=== PATIENT | female | born 1960 | race Caucasian/White ===

== ENCOUNTER 2016-11-04 21:44 | Emergency (ER) | payer MEDICARE, BC ==
[2016-11-04] MEDS ORDERED: fentaNYL 100 MCG/2 ML SDV IVPUSH ONE (23:03)
[2016-11-04] MEDS ORDERED: Prochlorperazine 10 MG/2 ML SDV IVPUSH ONE (23:03)
[2016-11-04] MEDS ORDERED: Sodium Chloride 0.9% 10 ML Syringe FLUSH PRN (23:03)
[2016-11-04] MEDS ORDERED: LORazepam 2 MG/ML MDV IVPUSH ONE (23:03)
--- NOTE | 2016-11-04 23:10 | EDM.PDOC ---
[id number]: VOMITING Time Seen by Provider: 11/04/16 22:55 Source of Information: Reports: Patient, Old records, RN notes reviewed History Limitations: Reports: No limitations - History of Present Illness INITIAL COMMENTS - FREE TEXT/NARRATIVE: Brought in by her parents Chief complaint Abdominal pain vomiting HPI 56-year-old female who underwent Liz-en-Y gastric bypass in 2011. Has had recurrent nausea and vomiting ever since, and last year she underwent upper endoscopy because of this, there was a narrow stricture but no signs of inflammation. She doesn't ever recall being quite so sick as this episode however. She started developing a backache 2 days ago which he thought may be due to kidney stones again. Tonight 6 PM she started vomiting. Multiple episodes of vomiting to the point that she says there is "nothing left inside". Severe lower abdominal midline cramps and burning. Low back pain in the midline. No fever or chills Urine appears a bit darker today she noted but no change in urinary frequency. She does have ongoing frequency because of atonic bladder since . Normal bowel movement today. He believes that she might be having kidney stones again. She has had her gallbladder and her uterus removed abd Pain Score (Numeric/FACES): 10 - Related Data Allergies Allergy/AdvReac Type Severity Reaction Status Date / Time ceftriaxone sodium Allergy Severe anaphylaxis Verified 11/04/16 22:43 [From Rocephin] dicloxacillin [Dicloxacillin] Allergy Severe anaphylaxis Verified 11/04/16 22:43 indomethacin [From Indocin] Allergy Severe anaphylaxis Verified 11/04/16 22:43 Penicillins Allergy Severe anaphylaxis Verified 11/04/16 22:43 latex Allergy Intermediate Rash Verified 11/04/16 22:43 pregabalin [From Lyrica] Allergy Intermediate Swelling Verified 11/04/16 22:43 amoxicillin trihydrate Allergy Mild Rash Verified 11/04/16 22:43 [From Augmentin] potassium clavulanate Allergy Mild Rash Verified 11/04/16 22:43 [From Augmentin] duloxetine HCl Allergy Swelling Verified 11/04/16 22:43 [From Cymbalta] NSAIDS (Non-Steroidal Allergy Rash Verified 11/04/16 22:43 Anti-Inflamma acetaminophen [From Percocet] AdvReac Intermediate Nausea and Verified 11/04/16 22:43 Vomiting furosemide [From Lasix] AdvReac Intermediate nausea and Verified 11/04/16 22:43 dizziness gabapentin [From Neurontin] AdvReac Intermediate Dizziness Verified 11/04/16 22: 43 ibuprofen AdvReac Intermediate gi Verified 11/04/16 22:43 intolerance oxycodone HCl [From Percocet] AdvReac Intermediate Nausea and Verified 11/04/16 22:43 Vomiting Sulfa (Sulfonamide AdvReac Intermediate gi Verified 11/04/16 22:43 Antibiotics) intolerance aspirin AdvReac Nausea and Verified 11/04/16 22:43 [From Darvon Compound-65] Vomiting caffeine AdvReac Nausea and Verified 11/04/16 22:43 [From Darvon Compound-65] Vomiting propoxyphene HCl AdvReac Nausea and Verified 11/04/16 22:43 [From Darvon Compound-65] Vomiting bee stings Allergy Severe anaphylaxis Uncoded 11/04/16 22:43 Home Meds: Home Meds Albuterol Sulfate [Albuterol Sulfate HFA] 2 puff INH Q4HR PRN 05/27/13 [History] EPINEPHrine [Epipen 2-Oscar] 0.3 mg SQ ASDIRECTED 05/27/13 [History] Ipratropium [Atrovent 0.06% Nasal Pinch] 2 sprays INH TID PRN 05/27/13 [History] Triamcinolone Acetonide [Kenalog 0.1% Crm] 1 film TOP BID PRN 05/27/13 [History] Hyoscyamine [Hyomax-SL] 0.125 mg SL Q4H PRN 05/31/13 [History] Acetaminophen with Codeine [Acetaminophen-Cod #3] 1 tab PO Q6H 10/11/15 [History ] Cholecalciferol (Vitamin D3) [Vitamin D3] 50,000 unit PO Q7D 10/11/15 [History] Diclofenac Sodium [Voltaren 1% Gel] 4 g TOP QID 10/11/15 [History] Dicyclomine [Bentyl] 20 mg PO QID PRN 10/11/15 [History] Fluticasone Propionate [Flonase Allergy Relief] 2 sprays NASBOTH DAILY PRN 10/10 [History] Tamsulosin [Flomax] 1 tab PO DAILY PRN 10/11/15 [History] Cyanocobalamin (Vitamin B-12) [Vitamin B-12] 1,000 mcg PO ASDIRECTED 11/04/16 [ History] Ondansetron [Zofran ODT] 4 mg SL Q6H PRN 11/04/16 [History] Thiamine [Vitamin B-1] 200 mg IM Q28D 11/04/16 [History] Zoledronic Acid in Water [Reclast] 5 mg IV ASDIRECTED 11/04/16 [History] Past Medical History - Past Health History Medical/Surgical History: Denies Medical/Surgical History HEENT History: Reports: Impaired vision Cardiovascular History: Reports: None Respiratory History: Reports: Asthma, Bronchitis, recurrent, Pneumonia, recurrent, Sleep apnea, SOB Gastrointestinal History: Reports: Chronic constipation, Chronic diarrhea, Colon polyp, Diverticulosis, GERD, Hiatal hernia, Irritable bowel syndrome Genitourinary History: Reports: Pyelonephritis, Renal calculus, UTI, recurrent, Other (see below) Other Genitourinary History: atonic bladder 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: Dysfunctional uterine bleeding, Musculoskeletal History: Reports: Arthritis, Back pain, chronic, Fibromyalgia, Neck pain, chronic Neurological History: Reports: Neuropathy, diabetic Psychiatric History: Reports: Anxiety, Depression Endocrine/Metabolic History: Reports: Diabetes, type II, Other (see below) Other Endocrine/Metabolic History: hypoglycemic Hematologic History: Reports: Anemia, B12 deficiency, Blood transfusion(s) Immunologic History: Reports: Other (see below) Other Immunologic History: shogrens disease Oncologic (Cancer) History: Reports: None Dermatologic History: Reports: Eczema, Psoriasis, Other (see below) Other Dermatologic History: atopic dermatitis - Infectious Disease History Infectious Disease History: Reports: Chicken pox, Shingles - Past Surgical History HEENT Surgical History: Reports: Naso-sinus surgery, Other (see below) Other HEENT Surgeries/Procedures: salivary gland removed Cardiovascular Surgical History: Reports: None Respiratory Surgical History: Reports: None GI Surgical History: Reports: Bariatric procedure, Cholecystectomy, Colonoscopy , EGD, Esophageal dilatation, Fabiana fundoplication Female Surgical History: Reports: Hysterectomy Endocrine Surgical History: Reports: None Neurological Surgical History: Reports: None Musculoskeletal Surgical History: Reports: Arthroscopic knee, Arthroscopic procedure, Shoulder surgery, Other (see below) Other Musculoskeletal Surgeries/Procedures:: carpal tunnel release x2 bilat, right ulnar release, left thumb surgery Dermatological Surgical History: Reports: None Social & Family History - Tobacco Use Smoking Status *Q: Never Smoker Second Hand Smoke Exposure: No - Alcohol Use Days Per Week of Alcohol Use: 0 - Recreational Drug Use Recreational Drug Use: No - Living Situation & Occupation Living situation: Reports: alone ED ROS GENERAL - Review of Systems Review Of Systems: See Below Constitutional: Reports: fatigue, diaphoresis, decreased appetite. Denies: fever HEENT: Reports: No symptoms Respiratory: Reports: No Symptoms Cardiovascular: Reports: No symptoms Endocrine: Reports: fatigue GI/Abdominal: Reports: Abdominal pain, Decreased appetite, Nausea, Vomiting. Denies: Constipation, Diarrhea : Reports: frequency (Chronic). Denies: dysuria, flank pain, hematuria Musculoskeletal: Reports: back pain (Midline low back) Skin: Reports: no symptoms Neurological: Reports: No Symptoms Psychiatric: Reports: No symptoms Hematologic/Lymphatic: Reports: no symptoms Immunologic: Reports: no symptoms ED EXAM, GENERAL - Physical Exam Exam: See Below Exam Limited By: No limitations General Appearance: alert, moderate distress, other (First the curled up on her side, occasional winces with pain or retching, elevated systolic blood pressure otherwise vital signs normal) Eye Exam: bilateral eye: normal inspection Ears: normal external exam, hearing grossly normal Nose: normal inspection, normal mucosa Throat/Mouth: Normal voice (Dry mucous membranes), Other Head: atraumatic Neck: supple, non-tender. No: lymphadenopathy (R), lymphadenopathy (L) Respiratory/Chest: no respiratory distress, lungs clear, no accessory muscle use Cardiovascular: normal peripheral pulses, regular rate, rhythm GI/Abdominal: normal bowel sounds, soft, no organomegaly, no distention, tender (Especially suprapubic and in the lower abdomen). No: distended, guarding, abnormal bowel sounds: Back Exam: normal inspection Extremities: normal inspection Neurological: alert, oriented, no motor/sensory deficits Psychiatric: anxious Skin Exam: Warm, Dry, Intact, Normal color, No rash Lymphatic: no adenopathy Course - Vital Signs Last Recorded V/S: Last Vital Signs Temp 35.9 C 11/05/16 00:51 Pulse 77 11/05/16 00:51 Resp 16 11/05/16 00:51 BP 101/53 L 11/05/16 00:51 Pulse Ox 95 11/05/16 00:51 - Orders/Labs/Meds Orders: Active Orders 24 hr Category Date Time Status Peripheral IV Care [RC] . DIRECTED Care 11/04/16 23:03 Active Abdomen Pelvis wo Cont [CT] Stat Exams 11/05/16 00:07 Taken Peripheral IV Insertion Adult [OM.PC] Routine Oth 11/04/16 23:02 Ordered Labs: Laboratory Tests 11/04/16 11/04/16 11/04/16 Range/Units 23:02 23:14 23:14 WBC 8.5 (4.5-11.0) K/uL RBC 4.64 (3.30-5.50) M/uL Hgb 13.5 (12.0-15.0) g/dL Hct 40.6 (36.0-48.0) % MCV 88 (80-98) fL MCH 29 (27-31) pg MCHC 33 (32-36) % Plt Count 238 (150-400) K/uL Sodium 139 L (140-148) mmol/L Potassium 4.0 (3.6-5.2) mmol/L Chloride 104 (100-108) mmol/L Carbon Dioxide 26 (21-32) mmol/L Anion Gap 13.0 (5.0-14.0) mmol/L BUN 17 (7-18) mg/dL Creatinine 0.8 (0.6-1.0) mg/dL Est Cr Clr Drug Dosing 63.41 mL/min Estimated GFR (MDRD) > 60 (>60) Glucose 185 H (74-106) mg/dL Lactic Acid 1.0 (0.4-2.0) mmol/L Calcium 8.2 L (8.5-10.1) mg/dL Total Bilirubin 0.3 (0.2-1.0) mg/dL AST 27 (15-37) U/L ALT 29 (12-78) U/L Alkaline Phosphatase 82 (46-116) U/L Total Protein 7.3 (6.4-8.2) g/dL Albumin 3.6 (3.4-5.0) g/dL Globulin 3.7 H (2.3-3.5) g/dL Albumin/Globulin Ratio 1.0 L (1.2-2.2) Lipase 295 (73-393) U/L Urine Color Urine Appearance Urine pH (4.5-8.0) Ur Specific [place] (1.008-1.030) Urine Protein (NEGATIVE) mg/dL Urine Glucose (UA) (NEGATIVE) mg/dL Urine Ketones (NEGATIVE) mg/dL Urine Occult Blood (NEGATIVE) Urine Nitrite (NEGATIVE) Urine Bilirubin (NEGATIVE) Urine Urobilinogen (NORMAL) mg/dL Ur Leukocyte Esterase (NEGATIVE) Urine RBC (0-5) Urine WBC (0-5) Ur Epithelial Cells Amorphous Sediment Urine Bacteria Urine Mucus 11/05/16 Range/Units 00:22 WBC (4.5-11.0) K/uL RBC (3.30-5.50) M/uL Hgb (12.0-15.0) g/dL Hct (36.0-48.0) % MCV (80-98) fL MCH (27-31) pg MCHC (32-36) % Plt Count (150-400) K/uL Sodium (140-148) mmol/L Potassium (3.6-5.2) mmol/L Chloride (100-108) mmol/L Carbon Dioxide (21-32) mmol/L Anion Gap (5.0-14.0) mmol/L BUN (7-18) mg/dL Creatinine (0.6-1.0) mg/dL Est Cr Clr Drug Dosing mL/min Estimated GFR (MDRD) (>60) Glucose (74-106) mg/dL Lactic Acid (0.4-2.0) mmol/L Calcium (8.5-10.1) mg/dL Total Bilirubin (0.2-1.0) mg/dL AST (15-37) U/L ALT (12-78) U/L Alkaline Phosphatase (46-116) U/L Total Protein (6.4-8.2) g/dL Albumin (3.4-5.0) g/dL Globulin (2.3-3.5) g/dL Albumin/Globulin Ratio (1.2-2.2) Lipase (73-393) U/L Urine Color Yellow Urine Appearance Clear Urine pH 5.0 (4.5-8.0) Ur Specific [place] 1.020 (1.008-1.030) Urine Protein Negative (NEGATIVE) mg/dL Urine Glucose (UA) Normal (NEGATIVE) mg/dL Urine Ketones 15 H (NEGATIVE) mg/dL Urine Occult Blood Negative (NEGATIVE) Urine Nitrite Negative (NEGATIVE) Urine Bilirubin Negative (NEGATIVE) Urine Urobilinogen 1 (NORMAL) mg/dL Ur Leukocyte Esterase Negative (NEGATIVE) Urine RBC 0-5 (0-5) Urine WBC 0-5 (0-5) Ur Epithelial Cells Few Amorphous Sediment Not seen Urine Bacteria Few Urine Mucus Not seen Meds: Medications Discontinued Medications Generic Name Dose Route Start Last Admin Trade Name Freq PRN Reason Stop Dose Admin Fentanyl 100 mcg 11/04/16 23:03 11/04/16 23:32 Sublimaze IVPUSH 11/04/16 23:04 100 mcg ONETIME ONE Administration Sodium Chloride 1,000 mls @ 500 mls/hr 11/04/16 23:15 11/04/16 23:26 Normal Saline IV 500 mls/hr ASDIRECTED JIA Administration Lorazepam 1 mg 11/04/16 23:03 11/04/16 23:27 Ativan IVPUSH 11/04/16 23:04 1 mg ONETIME ONE Administration Prochlorperazine Edisylate 5 mg 11/04/16 23:03 11/04/16 23:29 Compazine IVPUSH 11/04/16 23:04 5 mg ONETIME ONE Administration Sodium Chloride 10 ml 11/04/16 23:03 11/04/16 23:34 Saline Flush FLUSH 10 ml ASDIRECTED PRN Administration Keep Vein Open - Re-Assessments/Exams Free Text/Narrative Re-Assessment/Exam: 11/04/16 23:09 48-year-old female with history of gastric bypass presenting with 5 hours nausea vomiting and abdominal cramps. Has had back pain for a few days. Differential diagnoses includes renal colic, dyspepsia, bowel obstruction, colitis, among others. Intravenous saline, fentanyl 100 mcg, Compazine 5 mg, lorazepam 1 mg Labs 11/05/16 00:18 00.05 Improved with the above treatment Lab tests showed normal white count 8.5 hemoglobin 13.5 normal electrolytes except sodium 139 Normal anion gap and lactic acid Glucose 185 Hepatic profile and lipase normal Urinalysis pending Discussed options with patient, elect to proceed with CT scan abdomen pelvis without IV contrast. 11/05/16 01:09 CT scan negative for obstructing ureteral stones although she does have bilateral small stones in the kidneys. Increased colonic fecal retention but no evidence of obstruction abscess hernia or other acute emergent condition. Fluids only until bowels and pain are reduced Continue current medications Return to emergency if severe pain repeated vomiting or other new symptoms. Discharge with mother Departure - Departure Time of Disposition: 01:06 Disposition: Home, Self-Care 01 Condition: good Clinical Impression: Recurrent lower abdominal pain, Nausea and vomiting in adult, Moderate dehydration Instructions: Abdominal Pain, Adult, [id number] Referrals: Michelle Chacon [employer] OPERATOR [Primary Care Provider] - Forms: ED Department Discharge Additional Instructions: Blood test and CT scan tonight did not show any signs of acute infection or process in the abdomen apart from some buildup of stool. There is a slowdown but no obstruction of the bowel. Clear fluids only until your bowels are working regularly again your pain is decreased. Continue antinausea medication as needed followup appointment with Dr. Bishop if your pain is persisting You may need to return to emergency if there is recurrent vomiting and you're unable to take anything in or you have severe pain again. - My Orders Last 24 Hours: My Active Orders 11/04/16 23:02 Peripheral IV Insertion Adult [OM.PC] Routine 11/04/16 23:03 Peripheral IV Care [RC] . DIRECTED 11/05/16 00:07 Abdomen Pelvis wo Cont [CT] Stat - Assessment/Plan Last 24 Hours: My Active Orders 11/04/16 23:02 Peripheral IV Insertion Adult [OM.PC] Routine 11/04/16 23:03 Peripheral IV Care [RC] . DIRECTED 11/05/16 00:07 Abdomen Pelvis wo Cont [CT] Stat
[2016-11-04] MEDS ORDERED: Sodium Chloride 0.9% 1,000 ML IV SCH (23:15)
[2016-11-05 00:52] VITALS: BP 101/53
== END 2016-11-05 01:15 | disposition home or self-care (01) ==
LOC: JP.ED 21:44
DX: R10.30 Lower abdominal pain, unspecified (principal); R11.2 Nausea with vomiting, unspecified; E86.0 Dehydration; J45.909 Unspecified asthma, uncomplicated; F41.9 Anxiety disorder, unspecified; F32.9 Major depressive disorder, single episode, unspecified; E11.9 Type 2 diabetes mellitus without complications; Z98.84 Bariatric surgery status; Z90.49 Acquired absence of other specified parts of digestive tract; Z90.710 Acquired absence of both cervix and uterus; Z98.890 Other specified postprocedural states; Z79.899 Other long term (current) drug therapy; Z88.0 Allergy status to penicillin; Z88.1 Allergy status to other antibiotic agents; Z88.2 Allergy status to sulfonamides; Z88.5 Allergy status to narcotic agent; Z88.8 Allergy status to other drugs, medicaments and biological substances; Z91.040 Latex allergy status; Z91.030 Bee allergy status
CPT/HCPCS: 36415; 74176; 80053; 81001; 83605; 83690; 85027; 96361; 96374; 96375; 99284; J0780; J2060; J3010; J7040; J7050

== ENCOUNTER 2017-08-20 05:52 | Day surgery (SDC) | payer MEDICARE, BC ==
[2017-08-20] MEDS ORDERED: Cyanocobalamin (Vitamin B12) 1,000 MCG/ML SDV IM ONE (06:30)
[2017-08-20] MEDS ORDERED: Lactated Ringers 1,000 ML IV ONE (06:30)
[2017-08-20] MEDS ORDERED: fentaNYL 100 MCG/2 ML SDV ONE (07:09)
[2017-08-20] MEDS ORDERED: Midazolam 1 MG/ML 2 ML SDV ONE (07:09)
[2017-08-20] MEDS ORDERED: Propofol 200 MG/20 ML SDV ONE (07:09)
[2017-08-20] MEDS ORDERED: Ondansetron 4 MG/2 ML SDV ONE (07:09)
[2017-08-20] MEDS ORDERED: Glycopyrrolate 0.2 MG/ML 2 ML SYRINGE IVPUSH ONE (07:15)
[2017-08-20] MEDS ORDERED: MVI, Adult with Vitamin K 10 ML, Thiamine 200 MG, Chromium/Copper/Mang/Selen/Zn 1 ML in... IV ONE ×4 (07:30)
[2017-08-20 08:50] VITALS: BP 111/70
[2017-08-21] MEDS ORDERED: Lidocaine 2% 100 MG/5 ML Syringe IVPUSH ONE (10:30)
[2017-08-21] MEDS ORDERED: Ketamine 500 MG/5 ML MDV IV SCH (10:30)
[2017-08-21] MEDS ORDERED: Lidocaine 0.4%/D5W 2 GM/500 ML BAG IV SCH (10:30)
[2017-08-21] MEDS ORDERED: Ropivacaine 33 ML, Dexamethasone 8 MG, EPINEPHrine 0.4 MG, Sodium Chloride 0.9% 44.6 ML NERVRT SCH ×4 (10:30)
--- NOTE | 2017-08-26 08:40 | OR ---
DATE OF PROCEDURE: 08/20/2017 PREOPERATIVE DIAGNOSIS: Dysphagia and epigastric discomfort, status post Liz-en-Y gastric bypass. POSTOPERATIVE DIAGNOSES: Gastrogastric fistula associated with: 1. Antral gastritis. 2. Pouch gastritis. 3. Mild stricturing of gastrojejunostomy. PROCEDURE: Esophagogastroduodenoscopy with: 1. Biopsies of antrum for CLOtest (48477). 2. Dilation of gastrojejunostomy ([id number]). ANESTHESIA: IV sedation. INDICATIONS FOR PROCEDURE: This is a 57-year-old presenting several years status post Liz- en-Y gastric bypass with some dysphagia, as well as epigastric discomfort. Plan is to proceed with upper GI endoscopy with biopsies and/or dilation as indicated. Potential risks including bleeding and perforation were discussed, and the patient wishes to proceed. DESCRIPTION OF PROCEDURE: The patient was taken to the operating room and placed in a left lateral decubitus position. IV sedation was administered, after which the upper GI endoscope was passed orally through the length of the esophagus and into the gastric pouch. The patient was noted to have some redness in the pouch. There was also noted to be a gastrogastric fistula, which was easily traversed with the gastroscope and taken down into the remainder of the stomach. The patient had some patchy antral gastritis, and the pyloric channel and duodenum to the junction of the third and fourth portions were otherwise unremarkable. At this point, biopsies were obtained from the antrum and sent for CLOtest for H. pylori. Following this, the scope was then brought back up into the pouch. The patient was noted to have some mild stricturing of the gastrojejunostomy as well. A 54- Turkish balloon dilator was then centered across the anastomosis and inflated and held it for 1 minute. Following completion of this, the balloon was deflated. The patient was noted to have some degree of improvement in terms of the caliber of the gastrojejunostomy. The scope was then withdrawn. The procedure concluded. There were no evident complications. Following the procedure, the situation was discussed with the patient and her mother, and plan will be to proceed with a laparoscopic closure of the gastrogastric fistula, i.e. revision of that portion of the gastric bypass, and will be scheduled in the next few days. Yahir Bishop MD /[id number]
== END 2017-08-20 09:25 | disposition home or self-care (01) ==
LOC: JP.SDS 05:52
PROVIDERS: ATTEND Surgery
DX: K29.50 Unspecified chronic gastritis without bleeding (principal); K31.6 Fistula of stomach and duodenum; K91.89 Other postprocedural complications and disorders of digestive system; Z98.84 Bariatric surgery status; K21.9 Gastro-esophageal reflux disease without esophagitis; E11.9 Type 2 diabetes mellitus without complications; J45.909 Unspecified asthma, uncomplicated; G47.30 Sleep apnea, unspecified; Z88.0 Allergy status to penicillin; Z88.1 Allergy status to other antibiotic agents; Z88.2 Allergy status to sulfonamides; Z88.8 Allergy status to other drugs, medicaments and biological substances; Z91.040 Latex allergy status; Z91.030 Bee allergy status
CPT/HCPCS: 43239; 43245; 87081; J2250; J2405; J2704; J3010; J3420; J7120

== ENCOUNTER 2017-08-21 07:50 | Inpatient (IN) | payer MEDICARE, BC ==
[2017-08-21] MEDS ORDERED: Dextrose 5%-Lactated Ringers 1,000 ML IV SCH (08:00)
[2017-08-21] MEDS ORDERED: Acetaminophen 500 MG Tab PO ONE (08:00)
[2017-08-21] MEDS ORDERED: Scopolamine 1.5 MG Transdermal Patch TOP SCH (08:00)
[2017-08-21] MEDS ORDERED: Celecoxib 200 MG Cap PO ONE (08:00)
[2017-08-21] MEDS ORDERED: Levofloxacin 500 MG/20 ML SDV ONE (08:10)
[2017-08-21] MEDS ORDERED: Levofloxacin/Dextrose 5%-Water 500 MG in Premix Bag 1 BAG IV ONE (08:30)
[2017-08-21] MEDS ORDERED: Ketamine 500 MG/5 ML MDV IV SCH (10:30)
[2017-08-21] MEDS ORDERED: Ropivacaine 33 ML, Dexamethasone 8 MG, EPINEPHrine 0.4 MG, Sodium Chloride 0.9% 44.6 ML NERVRT SCH ×4 (10:30)
[2017-08-21] MEDS ORDERED: Lidocaine 2% 100 MG/5 ML Syringe IVPUSH ONE (10:30)
[2017-08-21] MEDS ORDERED: Succinylcholine/Normal Saline 200 MG/10 ML Syringe ONE (11:13)
[2017-08-21] MEDS ORDERED: Neostigmine Methylsulfate 1 MG/ML 5 ML Syringe ONE (11:13)
[2017-08-21] MEDS ORDERED: Rocuronium 50 MG/5 ML Vial ONE (11:13)
[2017-08-21] MEDS ORDERED: fentaNYL 250 MCG/5 ML SDV ONE (11:13)
[2017-08-21] MEDS ORDERED: Propofol 200 MG/20 ML SDV ONE (11:13)
[2017-08-21] MEDS ORDERED: Ondansetron 4 MG/2 ML SDV ONE (11:13)
[2017-08-21] MEDS ORDERED: Dexamethasone 4 MG/ML SDV ONE (11:13)
[2017-08-21] MEDS ORDERED: ePHEDrine 50 MG/ML SDV ONE (11:39)
[2017-08-21] MEDS ORDERED: fentaNYL 100 MCG/2 ML SDV ONE (13:36)
[2017-08-21] MEDS ORDERED: HYDROmorphone/Normal Saline 15 MG/30 ML PCA IV PRN (14:14)
[2017-08-21] MEDS ORDERED: Naloxone 0.4 MG/ML SDV IV PRN (14:14)
[2017-08-21] MEDS: Lidocaine 0.4%/D5W 2 GM/500 ML BAG IV SCH (14:45)
[2017-08-21] MEDS: Dextrose 5%-Lactated Ringers 1,000 ML IV SCH (14:48)
[2017-08-21] MEDS ORDERED: Labetalol 20 MG/4 ML Syringe IVPUSH PRN (15:00)
[2017-08-21] MEDS ORDERED: Ondansetron 4 MG/2 ML SDV IVPUSH PRN (15:00)
[2017-08-21] MEDS ORDERED: diphenhydrAMINE 50 MG/ML SDV IVPUSH PRN (15:00)
[2017-08-21] MEDS ORDERED: Metoclopramide 10 MG/2 ML SDV IVPUSH PRN (15:00)
[2017-08-21] MEDS: hydrOXYzine HCl 100 MG/2 ML SDV IM PRN ×2 (15:16→19:16)
[2017-08-21] MEDS ORDERED: MVI, Adult with Vitamin K 10 ML, Thiamine 200 MG, Chromium/Copper/Mang/Selen/Zn 1 ML in... IV SCH ×4 (16:00)
[2017-08-21] MEDS: Pantoprazole 40 MG Vial IVPUSH SCH (16:09)
[2017-08-21] MEDS: Acetaminophen Soln 650 MG/20.3 ML UD Cup PO SCH ×2 (16:09→21:22)
[2017-08-21] MEDS: Heparin Sodium 5,000 Units/ML Vial SUBCUT SCH (19:16)
[2017-08-22] MEDS ORDERED: Iohexol 647 MG/ML 50 ML SDV PO PRN (02:09)
[2017-08-22] MEDS: hydrOXYzine HCl 100 MG/2 ML SDV IM PRN ×3 (03:23→17:13)
[2017-08-22] MEDS: Acetaminophen Soln 650 MG/20.3 ML UD Cup PO SCH ×4 (04:06→22:53)
[2017-08-22] MEDS: Dextrose 5%-Lactated Ringers 1,000 ML IV SCH (06:12)
[2017-08-22] MEDS: Heparin Sodium 5,000 Units/ML Vial SUBCUT SCH ×2 (08:08→19:56)
[2017-08-22] MEDS: SCOPOLAMINE PATCH CHECK TOP SCH (08:21)
[2017-08-22] MEDS ORDERED: Dextrose 5%-Lactated Ringers 1,000 ML IV SCH (08:30)
[2017-08-22] MEDS: Tamsulosin 0.4 MG Cap.ER PO SCH (09:30)
[2017-08-22] MEDS ORDERED: Levofloxacin/Dextrose 5%-Water 500 MG in Premix Bag 1 BAG IV SCH (11:00)
[2017-08-22] MEDS: Lidocaine 0.4%/D5W 2 GM/500 ML BAG IV SCH (12:40)
[2017-08-22] MEDS: Pantoprazole 40 MG Vial IVPUSH SCH (15:31)
[2017-08-22] MEDS ORDERED: MVI, Adult with Vitamin K 10 ML, Thiamine 200 MG, Chromium/Copper/Mang/Selen/Zn 1 ML in... IV SCH ×4 (16:00)
[2017-08-23] MEDS: hydrOXYzine HCl 100 MG/2 ML SDV IM PRN ×2 (01:13→13:36)
[2017-08-23] MEDS: Acetaminophen Soln 650 MG/20.3 ML UD Cup PO SCH ×4 (04:10→22:49)
[2017-08-23] MEDS: Heparin Sodium 5,000 Units/ML Vial SUBCUT SCH ×2 (07:52→20:13)
[2017-08-23] MEDS: Hyoscyamine 0.125 MG Tab.SL SL PRN ×2 (07:58→18:21)
[2017-08-23] MEDS: Tamsulosin 0.4 MG Cap.ER PO SCH (08:39)
[2017-08-23] MEDS: SCOPOLAMINE PATCH CHECK TOP SCH (08:43)
[2017-08-23] MEDS ORDERED: Cyanocobalamin (Vitamin B12) 1,000 MCG/ML SDV IM ONE (09:00)
[2017-08-24] MEDS: Acetaminophen Soln 650 MG/20.3 ML UD Cup PO SCH ×2 (03:28→09:26)
[2017-08-24] MEDS: Heparin Sodium 5,000 Units/ML Vial SUBCUT SCH (07:38)
[2017-08-24 08:29] VITALS: BP 129/77
[2017-08-24] MEDS: Tamsulosin 0.4 MG Cap.ER PO SCH (09:26)
--- NOTE | 2017-08-24 10:13 | CR ---
Limited upper GI The patient is status post Liz-en-Y gastric bypass. There are left upper quadrant drains in place. T here is no extravasation of contrast. The gastric pouch empties readily into a nondilated Liz limb. No complications are evident. Impression: 1. Status post Liz-en-Y gastric bypass without evidence for complication.
--- NOTE | 2017-08-24 11:47 | PN ---
DATE OF SERVICE: 08/22/2017 The patient has been afebrile with stable vital signs, status post revision of gastric pouch, portion of gastric bypass yesterday along with concurrent gastric resection. Clinically, she is doing well at this point and will advance to a step-2 diet, is not requiring anything beyond the Tylenol for pain. We will restart her Flomax and her step-2 diet today. She may be ready for discharge home tomorrow. Yahir Bishop MD /[id number]
--- NOTE | 2017-08-24 13:11 | PN ---
DATE OF SERVICE: 08/23/2017 The patient has been afebrile with stable vital signs. Complaining of some cramping pain this morning, is known to take some hyoscyamine for that, and we will restart that. Otherwise, oral intake was a little bit marginal. We will keep her 1 more day. Pain control was satisfactory with the gabapentin and Tylenol. Yahir Bishop MD /[id number]
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
--- NOTE | 2017-08-31 12:24 | OR ---
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 POSTOPERATIVE DIAGNOSES: 1. 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 2. Segment of stomach ischemic status post dissection of area around gastrogastric fistula. OPERATIVE PROCEDURES: Diagnostic laparoscopy with lysis of adhesions and;: 1. Revision of gastric pouch portion of Liz-en-Y gastric bypass (56486). 2. Additional partial gastrectomy removing area of the stomach rendered ischemic, status post dissection of area around gastrogastric fistula (50130). ANESTHESIA: General. FAMILY RESOURCE MANAGEMENT PROFESSOR: Grisel Bergman PA-C, and GO Palomo3. INDICATION FOR PROCEDURE: This is a 57-year-old female presenting with some ongoing upper abdominal discomfort status post previous Liz-en-Y gastric bypass. She was noted to have a gastrogastric fistula on upper GI endoscopy as well. Plan is to proceed with a diagnostic laparoscopy, laparotomy if necessary, and revision of the gastric pouch portion of the Liz- en-Y gastric bypass including division of the gastrogastric fistula. Potential risks of the procedure including bleeding, infection, leaks from various GI tract closures were all reviewed along with the remote possibility of cardiopulmonary, septic, or hemorrhagic complications leading to , and the patient wishes to proceed. DETAILS OF PROCEDURE: The patient was taken to the operating room and placed in a supine position. After general endotracheal anesthesia was induced, she was converted to a lithotomy position, and the abdomen prepped and draped. At 15 cm inferior and 5 cm left of xiphoid process, a transverse incision was made. The peritoneal cavity entered under direct vision with an Optiview trocar and inflated to 15 mmHg pressure with CO2. Laparoscope was then reinserted. No underlying trocar insertion site injuries were seen. Following this, 5 additional trocars were placed across the upper and mid abdomen and general exploration was undertaken. The patient was noted to have a normal-appearing Liz limb and intact jejunojejunostomy. As one passed up toward the stomach, there were some adhesions in the area of previous gastrojejunostomy and gastric pouch. These were taken down allowing the liver to be retracted anteriorly. At this point, the lesser sac was entered at a point somewhat below the gastrojejunostomy with a combination of Harmonic scalpel and blunt dissection. This then allowed dissection of the stomach away from the pancreas and splenic vessels. The division of some was initiated with a combination of black and purple loads, continuing from that point up to the area of the uppermost gastric fundus over the midportion of the left diaphragm. This then allowed dissection of the stomach further away from the adhesions posterior to the area of the gastrojejunostomy. At that point, an Saurabh tube with 32-Bengali caliber was placed orally per Anesthesia, and placed across the gastrojejunostomy and into the Liz limb to prevent overtightening of that area. Once the stomach was pulled up flush with the previous gastric pouch staple line, this area was then divided with JOE black loads and that specimen delivered from the field. The patient was noted to have an additional area of some ischemic stomach related to takedown of the area of the gastrogastric fistula, and this was excised as an additional partial gastrectomy using a combination of black and purple loads. Both specimens at that point had been delivered from the field. Fibrin sealant was then placed adjacent to the new gastric staple line, and the omentum tacked up in that area as well with some 3-0 Vicryl stitch. The abdomen was then irrigated with antibiotic-containing saline solution. A Anders-Mcmillan drain was then placed adjacent to the gastric staple line and from there up in the splenic fossa. This was taken down through the left lateral trocar site. The trocars were removed and the peritoneal cavity deflated. Incisions were closed using 4-0 Vicryl skin stitch and drain affixed with the same suture. The patient was taken to the recovery room in a satisfactory condition. There were no evident complications. Physician magistrate assistant, Grisel Bergman, played an essential role in assisting in this case, helping to position the patient, retract structures as needed, as well as suturing and cutting sutures when indicated. Her presence improved patient safety and decreased the operative time. Yahir Bishop MD /[id number]
== END 2017-08-24 10:38 | disposition home or self-care (01) | DRG 392 ==
LOC: JP.SDSSCHI 07:50 → JP.SDS 07:50 → EDSTATUS 08:30 → JP.2SS 13:30
PROVIDERS: ADMIT Surgery; ATTEND Surgery
PROC: 0DB64ZZ Excision of Stomach, Percutaneous Endoscopic Approach (ICD-10-PCS; principal; 2017-08-21)
PROC: 0DB64ZZ Excision of Stomach, Percutaneous Endoscopic Approach (ICD-10-PCS; 2017-08-21)
DX: K31.6 Fistula of stomach and duodenum (principal); K91.2 Postsurgical malabsorption, not elsewhere classified; K91.850 Pouchitis; R13.19 Other dysphagia; E16.1 Other hypoglycemia; Z86.14 Personal history of Methicillin resistant Staphylococcus aureus infection; E53.8 Deficiency of other specified B group vitamins; E55.9 Vitamin D deficiency, unspecified; Z98.84 Bariatric surgery status; Z98.0 Intestinal bypass and anastomosis status; Z68.25 Body mass index [BMI] 25.0-25.9, adult; J45.909 Unspecified asthma, uncomplicated; K58.9 Irritable bowel syndrome, unspecified; E11.42 Type 2 diabetes mellitus with diabetic polyneuropathy; M79.7 Fibromyalgia; E78.5 Hyperlipidemia, unspecified; G47.30 Sleep apnea, unspecified; L20.9 Atopic dermatitis, unspecified; K31.89 Other diseases of stomach and duodenum
CPT/HCPCS: 36415; 74240; 74240-26; 82962; 86850; 86900; 86901; 88304; 88307; 94762; A9270-GY; C9113; J0171; J1100; J1644; J1956; J2001; J2405; J2704; J2795; J3010; J3410; J3411; J3420; J7030; J7042; J7050; Q9967

== ENCOUNTER 2020-11-30 08:33 | Day surgery (SDC) | payer MEDICARE, BC ==
[~2020-11-30 08:33] MED LIST: Lactated Ringers 1,000 ML IV ONE; MVI, Adult with Vitamin K 10 ML, Thiamine 200 MG, Chromium/Copper/Mang/Selen/Zn 1 ML in... IV ONE; Midazolam 1 MG/ML 2 ML SDV ONE; Propofol 200 MG/20 ML SDV ONE; fentaNYL 100 MCG/2 ML SDV ONE
[2020-11-30] MEDS ORDERED: MVI, Adult with Vitamin K 10 ML, Thiamine 200 MG, Chromium/Copper/Mang/Selen/Zn 1 ML in... IV ONE ×8 (09:30→10:45)
[2020-11-30] MEDS ORDERED: Lactated Ringers 1,000 ML IV ONE (09:30)
[2020-11-30] MEDS ORDERED: Cyanocobalamin (Vitamin B12) 1,000 MCG/ML SDV IM ONE (09:30)
[2020-11-30] MEDS ORDERED: Glycopyrrolate 0.2 MG/ML 2 ML SDV IVPUSH ONE (09:45)
[2020-11-30 12:17] VITALS: BP 107/67; PULSE 75
--- NOTE | 2020-12-09 14:32 | OR ---
DATE OF PROCEDURE: 11/30/2020 SURGEON: Yahir Bishop MD PREOPERATIVE DIAGNOSIS: Dysphagia referable to distal esophagus and esophagogastric junction. POSTOPERATIVE DIAGNOSES: Very mild narrowing of distal esophagus and gastrojejunostomy without significant mucosal inflammation. OPERATIVE PROCEDURE: Upper gastrointestinal endoscopy with dilation of distal esophagus and esophagogastric junction (48660). ANESTHESIA: IV sedation. INDICATIONS FOR PROCEDURE: A 60-year-old presenting with some dysphagia referable to the distal esophagus. She is status post Liz-en-Y gastric bypass and is to undergo an upper endoscopy with biopsies and/or dilation as indicated. Potential risks including bleeding and perforation were discussed, and the patient wishes to proceed. DETAILS OF PROCEDURE: The patient was taken to the operating room, placed in a left lateral decubitus position. IV sedation was administered after which the upper GI endoscope was passed orally through the length of the esophagus, into the stomach, into the gastric pouch, and from there through the gastrojejunostomy roughly 20 cm into Liz limb. Overall findings include a very mild narrowing of the distal esophagus and gastrojejunostomy, but otherwise, there was no mucosal inflammation present and no significant findings suggestive of any obstructive process. A Bard gastrointestinal balloon catheter was centered across the gastrojejunostomy and distal esophagus and inflated to 54- Greek size. This was held in position for 1 minute after which it was deflated and withdrawn. A little change occurred indicating that this was primarily a functional problem with regard to her esophageal motility and such. The scope was then withdrawn. The procedure was then concluded. The patient will continue her home medications. She is instructed to try the Levsin, perhaps 15 minutes before meals to see if that helps with regard to her dysphagia. The patient does have an appointment with Grisel Bergman PA-C on . Yahir Bishop MD /[id number]
== END 2020-11-30 12:37 | disposition home or self-care (01) ==
LOC: JP.SDS 08:33
PROVIDERS: ATTEND Surgery
DX: K91.89 Other postprocedural complications and disorders of digestive system (principal); K22.2 Esophageal obstruction; G47.33 Obstructive sleep apnea (adult) (pediatric); E11.9 Type 2 diabetes mellitus without complications; K21.9 Gastro-esophageal reflux disease without esophagitis; Z98.84 Bariatric surgery status
CPT/HCPCS: 43249; J2250; J2704; J3010; J3411; J3420; J3490; J7120

== ENCOUNTER 2021-04-30 21:54 | Emergency (ER) | payer MEDICARE, BC ==
[2021-04-30 22:16] VITALS: BP 147/83; PULSE 79
--- NOTE | 2021-04-30 23:05 | EDM.PDOC ---
ED HPI GENERAL MEDICAL PROBLEM - General Chief Complaint: General Stated Complaint: PRESSURE AND PAIN IN RIB CAGE Time Seen by Provider: 04/30/21 22:48 Source of Information: Reports: Patient History Limitations: Reports: No Limitations - History of Present Illness INITIAL COMMENTS - FREE TEXT/NARRATIVE: The emergency room today secondary to an upper abdominal pain under the rib cage area across the entire abdomen she describes it as a cramping waves of squeezing sharp stabbing intermittently when stabbing pain occurs is a 10 out of 10. Patient states that she did have an episode of nausea and vomiting around 1800 today. Patient also has a history significant for dental surgery that occurred today and she has been using Tylenol for this as well as clindamycin since she has had 3 doses of her clindamycin today. Patient states she also took her irritable bowel medicine but this did not help so she came to the emergency room. She did take zofran at home after episode of N/V, she states this helped PMH/Meds/allergies--reviewed in EMR as patient does not know all; review of medication list is noted for use of hyoscyamine, dicyclomine, and tramadol in past PSH--gastric bypass, esophageal/intestinal adhesionlysis, SHARMAINE, cholecystectomy Denies tob/etoh/drug use history Patient denies having had COVID; she has received her COVID immunization (Mode rna) Onset: Today, Sudden Upper Abdomen Pain Score (Numeric/FACES): 5 - Related Data Allergies Allergy/AdvReac Type Severity Reaction Status Date / Time ceftriaxone sodium Allergy Severe anaphylaxis Verified 04/30/21 22:17 [From Rocephin] dicloxacillin [Dicloxacillin] Allergy Severe anaphylaxis Verified 04/30/21 22:17 indomethacin [From Indocin] Allergy Severe anaphylaxis Verified 04/30/21 22:17 Penicillins Allergy Severe anaphylaxis Verified 04/30/21 22:17 latex Allergy Intermediate Rash Verified 04/30/21 22:17 pregabalin [From Lyrica] Allergy Intermediate Swelling Verified 04/30/21 22:17 amoxicillin trihydrate Allergy Mild Rash Verified 04/30/21 22:17 [From Augmentin] potassium clavulanate Allergy Mild Rash Verified 04/30/21 22:17 [From Augmentin] duloxetine HCl Allergy Swelling Verified 04/30/21 22:17 [From Cymbalta] mirtazapine Allergy Other Verified 04/30/21 22:17 NSAIDS (Non-Steroidal Allergy Rash Verified 04/30/21 22:17 Anti-Inflamma Fklwhev-JVP-LqY Reductase Allergy Other Verified 04/30/21 22:17 Inhibitor [Hjqtmok-Xot-Igr Reductase Inhibitor] acetaminophen [From Percocet] AdvReac Intermediate Nausea and Verified 04/30/21 22:17 Vomiting furosemide [From Lasix] AdvReac Intermediate nausea and Verified 04/30/21 22:17 dizziness gabapentin [From Neurontin] AdvReac Intermediate Dizziness Verified 04/30/21 22:17 ibuprofen AdvReac Intermediate gi Verified 04/30/21 22:17 intolerance oxycodone HCl [From Percocet] AdvReac Intermediate Nausea and Verified 04/30/21 22:17 Vomiting Sulfa (Sulfonamide AdvReac Intermediate gi Verified 04/30/21 22:17 Antibiotics) intolerance aspirin AdvReac Nausea and Verified 04/30/21 22:17 [From Darvon Compound-65] Vomiting caffeine AdvReac Nausea and Verified 04/30/21 22:17 [From Darvon Compound-65] Vomiting propoxyphene HCl AdvReac Nausea and Verified 04/30/21 22:17 [From Darvon Compound-65] Vomiting bee stings Allergy Severe anaphylaxis Uncoded 04/30/21 22:17 Home Meds: Home Meds Albuterol Sulfate [Albuterol Sulfate HFA] 2 puff INH Q4HR PRN 05/27/13 [History] EPINEPHrine [Epipen 2-Oscar] 0.3 mg SQ ASDIRECTED 05/27/13 [History] Ipratropium [Atrovent 0.06% Nasal Rogers] 2 sprays INH TID PRN 05/27/13 [History] Triamcinolone Acetonide [Kenalog 0.1% Crm] 1 film TOP BID PRN 05/27/13 [History] Hyoscyamine [Hyomax-SL] 0.125 mg SL Q4H PRN 05/31/13 [History] Cholecalciferol (Vitamin D3) [Vitamin D3] 50,000 unit PO Q7D 10/11/15 [History] Diclofenac Sodium [Voltaren 1% Gel] 4 g TOP QID 10/11/15 [History] Dicyclomine [Bentyl] 20 mg PO QID PRN 10/11/15 [History] Cyanocobalamin (Vitamin B-12) [Vitamin B-12] 1,000 mcg IM Q14D 11/04/16 [History] Ondansetron [Zofran ODT] 4 mg SL Q6H PRN 11/04/16 [History] Thiamine [Vitamin B-1] 100 mg IM Q28D 11/04/16 [History] Zoledronic Acid in Water [Reclast] 5 mg IV ASDIRECTED 11/04/16 [History] Tamsulosin [Flomax] 0.4 mg PO DAILY PRN 08/18/17 [History] Acetaminophen [Tylenol] 650 mg PO Q6H #1120 ml 08/24/17 [Rx] Folic Acid 1 mg PO DAILY 06/14/18 [History] polyethylene glycoL 3350 [MiraLAX] 17 gm PO DAILY PRN 06/14/18 [History] Ammonium Lactate [Lac-Hydrin 12% Crm] 1 applic TOP BID 11/03/19 [History] Omeprazole 40 mg PO DAILY 11/26/20 [History] traMADol HCl [Tramadol HCl] 50 mg PO Q6H PRN 11/26/20 [History] Clindamycin HCl 1 cap PO QID 04/30/21 [History] Past Medical History - Past Health History Medical/Surgical History: Denies Medical/Surgical History HEENT History: Reports: Impaired Vision, Other (See Below) Other HEENT History: ruptured left ear drum Cardiovascular History: Reports: High Cholesterol Respiratory History: Reports: Asthma, Bronchitis, Recurrent, Pneumonia, Recurrent, Sleep Apnea, SOB Gastrointestinal History: Reports: Chronic Constipation, Chronic Diarrhea, Colon Polyp, Diverticulosis, GERD, Hiatal Hernia, Irritable Bowel Syndrome Genitourinary History: Reports: Pyelonephritis, Renal Calculus, UTI, Recurrent Other Genitourinary History: atonic bladder FREELANCE WRITER History: Reports: Dysfunctional Uterine Bleeding, Musculoskeletal History: Reports: Arthritis, Back Pain, Chronic, Fibromyalgia, Neck Pain, Chronic Neurological History: Reports: Neuropathy, Diabetic Psychiatric History: Reports: Anxiety, Depression, PTSD Endocrine/Metabolic History: Reports: Diabetes, Type II, Other (See Below) Other Endocrine/Metabolic History: hypoglycemic Hematologic History: Reports: Anemia, B12 Deficiency, Blood Transfusion(s), Iron Deficiency Immunologic History: Reports: Other (See Below) Other Immunologic History: shogrens disease Oncologic (Cancer) History: Reports: None Dermatologic History: Reports: Eczema, Psoriasis, Other (See Below) Other Dermatologic History: atopic dermatitis - Infectious Disease History Infectious Disease History: Reports: Chicken Pox, MRSA, Mumps, Shingles Other Infectious Disease History: hx MRSA left hand after thumb surgery 10+ years ago - Past Surgical History Head Surgeries/Procedures: Reports: None HEENT Surgical History: Reports: Naso-Sinus Surgery, Oral Surgery, Other (See Below) Other HEENT Surgeries/Procedures: salivary gland removed Cardiovascular Surgical History: Reports: None Respiratory Surgical History: Reports: None GI Surgical History: Reports: Bariatric Procedure, Cholecystectomy, Colonoscopy, EGD, Esophageal Dilatation, Fabiana Fundoplication Female Surgical History: Reports: Hysterectomy, Salpingo-Oophorectomy Endocrine Surgical History: Reports: None Neurological Surgical History: Reports: None Musculoskeletal Surgical History: Reports: Arthroscopic Knee, Arthroscopic Procedure, Shoulder Surgery, Other (See Below) Other Musculoskeletal Surgeries/Procedures:: carpal tunnel release x2 bilat, right ulnar release, left thumb surgery, left foot bone removed Oncologic Surgical History: Reports: None Dermatological Surgical History: Reports: Skin Biopsy Social & Family History - Family History Family Medical History: No Pertinent Family History - Tobacco Use Tobacco Use Status *Q: Never Tobacco User - Caffeine Use Caffeine Use: Reports: Coffee - Recreational Drug Use Recreational Drug Use: No - Living Situation & Occupation Living situation: Reports: Alone ED ROS GENERAL - Review of Systems Review Of Systems: Comprehensive ROS is negative, except as noted in HPI. Constitutional: Reports: No Symptoms Respiratory: Reports: No Symptoms Cardiovascular: Reports: No Symptoms GI/Abdominal: Reports: Abdominal Pain, Nausea, Vomiting. Denies: Constipation, Diarrhea, Distension ED EXAM, GENERAL - Physical Exam Exam: See Below Exam Limited By: No Limitations General Appearance: Alert, WD/WN, Moderate Distress (secondary to abdominal pain/discomfort) Eye Exam: Bilateral Eye: EOMI, Normal Inspection, PERRL Ears: Normal External Exam, Hearing Grossly Normal Nose: Normal Inspection Throat/Mouth: Normal Inspection, Normal Oropharynx, Normal Voice, No Airway Compromise Head: Atraumatic, Normocephalic Neck: Normal Inspection, Supple, Non-Tender, Full Range of Motion Respiratory/Chest: No Respiratory Distress, Lungs Clear, Normal Breath Sounds, Chest Non-Tender Cardiovascular: Normal Peripheral Pulses, Regular Rate, Rhythm, No Edema, No Murmur GI/Abdominal: Normal Bowel Sounds, Soft, No Distention, Tender (mild palpatory tenderness across upper abdomen--focal mid to left side) (Female) Exam: Deferred Rectal (Female) Exam: Deferred Back Exam: Normal Inspection, Full Range of Motion Extremities: Normal Inspection, Normal Range of Motion, No Pedal Edema, Normal Capillary Refill Neurological: Alert, Oriented, Normal Cognition, Normal Gait, No Motor/Sensory Deficits Psychiatric: Normal Affect, Normal Mood Skin Exam: Warm, Dry, Intact, Normal Color, No Rash Course - Vital Signs Text/Narrative:: d/w patient that likely IBS flare from stress of dental surgery & use of clindamycin; recommend continued use of her home medications for IBS (hyoscyamine, dicyclomine) and will provide rx for limited supply of tramadol. she states she has zofran at home. will also add protonix (she only takes omeprazole prn). ensure you are drinking plenty of fluids to stay hydrated. follow up with PCM if continued concerns. verbalized understanding/agreement with plan of care Last Recorded V/S: Last Vital Signs Temp 97.1 F 04/30/21 22:15 Pulse 79 04/30/21 22:15 Resp 16 04/30/21 22:15 BP 147/83 H 04/30/21 22:15 Pulse Ox 96 04/30/21 22:15 - Orders/Labs/Meds Orders: Active Orders 24 hr Category Date Time Status Pantoprazole [ProTONIX] Med 04/30/21 22:58 Once 40 mg PO ONETIME ONE traMADol [Ultram] Med 04/30/21 22:58 Once 50 mg PO ONETIME ONE Departure - Departure Time of Disposition: 23:10 Disposition: Home, Self-Care 01 Condition: Good Clinical Impression: IBS (irritable bowel syndrome), Abdominal cramping - Discharge Information *PRESCRIPTION DRUG MONITORING PROGRAM REVIEWED*: Yes *COPY OF PRESCRIPTION DRUG MONITORING REPORT IN PATIENT LYN: Not Applicable Instructions: Diet for Irritable Bowel Syndrome, Abdominal Pain, Adult, [id number], Irritable Bowel Syndrome, Adult Referrals: Duyen Cotton DO [Primary Care Provider] - Additional Instructions: Continue use of your medications for your IBS--hyoscyamine & dicyclomine as per prescription label, ondasetron (Zofran) for nausea/vomiting. I have provided you a prescription for pantoprazole (Protonix) to use twice a day x 1 week (during use of clindamycin) as well as tramadol for pain. Contact your PCM/family doctor should you have further concerns or need additional pain medication as we can not provide ongoing/refills for pain medications Sepsis Event Note (ED) - Evaluation Sepsis Screening Result: No Definite Risk - Focused Exam Vital Signs: Vital Signs Temp Pulse Resp BP Pulse Ox 04/30/21 22:15 97.1 F 79 16 147/83 H 96 - My Orders Last 24 Hours: My Active Orders 04/30/21 22:58 Pantoprazole [ProTONIX] 40 mg PO ONETIME ONE traMADol [Ultram] 50 mg PO ONETIME ONE - Assessment/Plan Last 24 Hours: My Active Orders 04/30/21 22:58 Pantoprazole [ProTONIX] 40 mg PO ONETIME ONE traMADol [Ultram] 50 mg PO ONETIME ONE
[2021-04-30] MEDS: traMADol 50 MG Tab PO ONE (23:06)
[2021-04-30] MEDS: Pantoprazole 40 MG Tab.CR PO ONE (23:06)
== END 2021-04-30 23:29 | disposition home or self-care (01) ==
LOC: JP.ED 21:54
DX: K58.9 Irritable bowel syndrome, unspecified (principal); J45.909 Unspecified asthma, uncomplicated; K21.9 Gastro-esophageal reflux disease without esophagitis; E11.9 Type 2 diabetes mellitus without complications; Z88.1 Allergy status to other antibiotic agents; Z88.0 Allergy status to penicillin; Z91.040 Latex allergy status; Z88.8 Allergy status to other drugs, medicaments and biological substances; Z88.6 Allergy status to analgesic agent; Z88.5 Allergy status to narcotic agent; Z88.2 Allergy status to sulfonamides; Z91.030 Bee allergy status; Z79.899 Other long term (current) drug therapy
CPT/HCPCS: 99283; A9270

== ENCOUNTER 2024-05-11 07:47 | Day surgery (SDC) | payer MEDICARE, BC ==
[2024-05-11] MEDS: Lactated Ringers 1,000 ML IV SCH (08:10)
[2024-05-11] MEDS ORDERED: fentaNYL 50 MCG/ML SDV ONE (08:26)
[2024-05-11] MEDS ORDERED: Propofol 200 MG/20 ML SDV ONE (08:26)
[2024-05-11] MEDS: Cyanocobalamin (Vitamin B12) 1,000 MCG/ML SDV IM ONE (08:36)
[2024-05-11] MEDS: MVI, Adult with Vitamin K 10 ML, Thiamine 200 MG, Zinc/Copper/Manganese/Selenium 1 ML i... IV ONE (09:33)
[2024-05-11 11:02] VITALS: BP 128/69; PULSE 58
== END 2024-05-11 11:38 | disposition home or self-care (01) ==
LOC: JP.SDS 07:47
PROVIDERS: ATTEND Surgery
DX: R13.10 Dysphagia, unspecified (principal)
CPT/HCPCS: 43239; 43249; C1726; J2704; J3010; J3411; J3420; J7120; 00731-QZ; 88305; J3490

== ENCOUNTER 2024-10-26 08:48 | Day surgery (SDC) | payer MEDICARE, BC ==
[~2024-10-26 08:48] MED LIST changes: +Bupivacaine 0.5% 50 ML MDV ONE; -Lactated Ringers 1,000 ML IV ONE; -MVI, Adult with Vitamin K 10 ML, Thiamine 200 MG, Chromium/Copper/Mang/Selen/Zn 1 ML in... IV ONE; -Midazolam 1 MG/ML 2 ML SDV ONE; -Propofol 200 MG/20 ML SDV ONE; -fentaNYL 100 MCG/2 ML SDV ONE
[2024-10-26] MEDS ORDERED: fentaNYL 100 MCG/2 ML SDV ONE (09:03)
[2024-10-26] MEDS ORDERED: Midazolam 1 MG/ML 2 ML SDV ONE (09:03)
[2024-10-26] MEDS ORDERED: Propofol 200 MG/20 ML SDV ONE ×2 (09:03→13:19)
[2024-10-26] MEDS: Nozin Nasal Sanitizer NASBOTH ONE (09:18)
[2024-10-26] MEDS: Lactated Ringers 1,000 ML IV SCH (09:18)
[2024-10-26 09:19] LABS: HEMATOCRIT 40.2 % (34.3-46.0); HEMOGLOBIN 13.1 g/dL (11.2-15.5); MEAN CORPUSCULAR HEMOGLOBIN 30.3 pg (31.6-35.5); MEAN CORPUSCULAR HGB CONC 32.6 g/dL (31.6-35.5); MEAN CORPUSCULAR VOLUME 93.1 fL (81.4-99.0); RED BLOOD CELL COUNT 4.32 M/uL (3.77-5.24); WHITE BLOOD CELL COUNT,WBC 5.2 K/uL (3.2-11.0)
[2024-10-26 09:34] LABS: ANION GAP 9.5 mmol/L (5.0-14.0); CALCIUM 8.9 mg/dL (8.5-10.1); CREATININE 0.8 mg/dL (0.6-1.0); EST CRCL DRUG DOSING (CG) 57.22 mL/min; POTASSIUM,K 4.1 mmol/L (3.6-5.2)
[2024-10-26] MEDS ORDERED: ceFAZolin 1 GM in Sodium Chloride 0.9% 50 ML IV ONE (12:03)
[2024-10-26] MEDS: Bupivacaine 0.5% 30 ML SDV ONE (12:25)
[2024-10-26] MEDS: VANCOmycin 1 GM in Sodium Chloride 0.9% 250 ML IV ONE (12:45)
[2024-10-26] MEDS ORDERED: Lactated Ringers 1,000 ML ONE (12:55)
[2024-10-26] MEDS ORDERED: Acetaminophen/oxyCODONE 325-5 MG Tab PO PRN (14:53)
[2024-10-26 15:25] VITALS: BP 175/91; PULSE 72
[2024-10-26] MEDS: oxyCODONE 5 MG Tab PO ONE (15:25)
== END 2024-10-26 15:46 | disposition home or self-care (01) ==
LOC: JP.SDS 08:48
PROVIDERS: ATTEND Specialist
DX: M75.112 Incomplete rotator cuff tear or rupture of left shoulder, not specified as traumatic (principal); M19.012 Primary osteoarthritis, left shoulder; M25.812 Other specified joint disorders, left shoulder; Z91.040 Latex allergy status
CPT/HCPCS: 01630; 29824; 29826; 29827; 36415; 64415; 80048; 85027; A9270; C1713; J0665; J2250; J2704; J3010; J7050; J7120

== ENCOUNTER 2025-01-26 10:22 | Emergency (ER) | payer MEDICARE, BC ==
[2025-01-26] MEDS ORDERED: Sodium Chloride 0.9% 10 ML Syringe FLUSH PRN (11:28)
[2025-01-26 11:39] LABS: BASOPHILS ABSOLUTE AUTO 0.04 K/uL (0.00-0.10); BASOPHILS PERCENT AUTO 0.4 % (0.1-1.3); EOSINOPHILS ABSOLUTE AUTO 0.09 K/uL (0.00-0.40); EOSINOPHILS PERCENT AUTO 1.0 % (0.0-5.4); IMMATURE GRAN ABSOLUTE AUTO 0.03 K/uL (0.00-0.23); IMMATURE GRAN PERCENT AUTO 0.3 % (0.0-0.7); LYMPHOCYTES ABSOLUTE AUTO 1.42 K/uL (0.8-3.3); LYMPHOCYTES PERCENT AUTO 15.4 % (11.4-47.7); MONOCYTES ABSOLUTE AUTO 0.56 K/uL (0.20-0.90); MONOCYTES PERCENT AUTO 6.1 % (3.3-12.6); NEUTROPHILS ABSOLUTE AUTO 7.06 K/uL (1.0-7.6); NEUTROPHILS PERCENT AUTO 76.8 % (40.0-78.1); PLATELET COUNT,PLT 275 K/uL (130-375); RED BLOOD CELL COUNT 4.23 M/uL (3.77-5.24); WHITE BLOOD CELL COUNT,WBC 9.2 K/uL (3.2-11.0)
[2025-01-26 11:55] LABS: BLOOD UREA NITROGEN,BUN 13.0 mg/dL (7-18); CARBON DIOXIDE,CO2 30.0 mmol/L (21-32); CHLORIDE,CL 103.0 mmol/L (100-108); CREATININE 0.8 mg/dL (0.6-1.0); EST CRCL DRUG DOSING (CG) 57.22 mL/min; ESTIMATED GFR 81.0 mL/min (>60); GLUCOSE RANDOM 147.0 mg/dL (74-106); POTASSIUM,K 3.7 mmol/L (3.6-5.2); SODIUM,NA 137.0 mmol/L (140-148)
[2025-01-26 12:03] LABS: LACTIC ACID 0.6 mmol/L (0.4-2.0)
[2025-01-26] MEDS: Iopamidol 612 MG/ML 100 ML Bottle IV ONE (12:56)
[2025-01-26] MEDS: Sodium Chloride 0.9% 10 ML Syringe FLUSH ONE (12:56)
[2025-01-26 15:10] VITALS: BP 114/68; PULSE 74
== END 2025-01-26 15:51 | disposition home or self-care (01) ==
LOC: JP.ED 10:22
DX: R50.9 Fever, unspecified (principal); Z98.890 Other specified postprocedural states; E03.9 Hypothyroidism, unspecified; J45.909 Unspecified asthma, uncomplicated; Z79.899 Other long term (current) drug therapy; Z79.890 Hormone replacement therapy; Z88.8 Allergy status to other drugs, medicaments and biological substances; Z88.0 Allergy status to penicillin; Z91.041 Radiographic dye allergy status; Z91.048 Other nonmedicinal substance allergy status; Z88.2 Allergy status to sulfonamides; Z91.030 Bee allergy status; Z90.710 Acquired absence of both cervix and uterus; Z90.49 Acquired absence of other specified parts of digestive tract
CPT/HCPCS: 36415; 71260; 74177; 80048; 83605; 85025; 86140; 96360; 99284; J7030; Q9967